=== PATIENT | female | born 1940 | race Asian ===

== ENCOUNTER 2016-05-14 12:33 | Inpatient (IN) | payer MEDICARE ==
[~2016-05-14] VITALS: Ht 165.1 cm; Wt 59.4 kg
[2016-05-14] MEDS ORDERED: TEMAZEPAM 15 MG CAPSULE PO PRN (17:30)
[2016-05-14] MEDS ORDERED: ONDANSETRON HCL 4 MG TABLET PO PRN (17:30)
[2016-05-14] MEDS ORDERED: ACETAMINOPHEN 325 MG TABLET PO PRN ×2 (17:30)
[2016-05-14 17:41] VITALS: BP 139/84
[2016-05-14 18:16] VITALS: BP 139/84
[2016-05-14 20:10] VITALS: BP 143/80
[2016-05-14] MEDS: ATORVASTATIN CALCIUM 40 MG TABLET PO SCH (20:11)
[2016-05-14] MEDS: CARVEDILOL 3.125 MG TABLET PO SCH (20:11)
[2016-05-14] MEDS: SENNA 218 MG/5 ML SYRUP ORAL.SYG PO SCH (20:11)
[2016-05-14] MEDS: DOCUSATE SODIUM 100 MG CAPSULE PO SCH (20:11)
[2016-05-15] VITALS: BP 144/75
[2016-05-15 05:02] LABS: APPEARANCE,URINE CLOUDY (CLEAR); GLUCOSE, URINE (UA) NEGATIVE (NEGATIVE); KETONES,URINE NEGATIVE (NEGATIVE); LEUKOCYTE ESTERASE ,URINE NEGATIVE (NEGATIVE); OCCULT BLOOD,URINE LARGE (NEGATIVE); PROTEIN,URINE NEGATIVE (NEGATIVE)
[2016-05-15 05:07] LABS: RBC,URINE 26-50 /HPF (0-2); SQUAMOUS EPITHELIAL CELL,UR Few /LPF (None Seen); WBC,URINE None Seen /HPF (0-5)
[2016-05-15] MEDS: DOCUSATE SODIUM 283 MG/5 ML MINI-ENEMA PR PRN (05:41)
[2016-05-15 06:54] LABS: BASOPHILS % (AUTO) 0.8 % (0.0-2.0); EOSINOPHILS % (AUTO) 1.6 % (1.0-6.0); HEMATOCRIT 40.4 % (36-46); HEMOGLOBIN 13.1 g/dL (12.0-16.0); LYMPHOCYTES # (AUTO) 1.5 K/uL (1.0-4.8); LYMPHOCYTES % (AUTO) 25.1 % (22.0-44.0); MEAN CORPUSCULAR HEMOGLOBIN 30.1 pg (26.0-34.0); MEAN CORPUSCULAR HGB CONC 32.4 G/dL (31.0-37.0); MEAN CORPUSCULAR VOLUME 93 fL (80-100); MONOCYTES # (AUTO) 0.6 K/uL (0.1-1.0); MONOCYTES % (AUTO) 9.1 % (2.0-9.0); NEUTROPHILS # (AUTO) 3.9 K/uL (1.8-7.7); NEUTROPHILS % (AUTO) 63.4 % (40.0-70.0); PLATELET COUNT (AUTO) 236 K/uL (150-450); RED BLOOD CELL COUNT(AUTO) 4.35 MIL/uL (4.00-5.20); RED CELL DISTRIBUTION WIDTH 13.7 % (11.5-14.5); WHITE BLOOD COUNT (AUTO) 6.2 K/uL (4.5-11.0)
[2016-05-15 07:12] LABS: ALBUMIN 2.9 g/dL (3.4-5.0); BILIRUBIN,TOTAL 0.3 mg/dL (0.1-1.0); CALCIUM, TOTAL 9.1 mg/dL (8.8-10.5); CREATININE 1.02 mg/dL (0.60-1.30); POTASSIUM 3.7 mmol/L (3.5-5.1); TOTAL PROTEIN, SERUM 7.3 g/dL (6.4-8.2)
[2016-05-15 07:15] VITALS: BP 132/83
[2016-05-15] MEDS: ASPIRIN 81 MG CHEWABLE TABLET PO SCH ×2 (09:00→12:28)
[2016-05-15] MEDS: LISINOPRIL 10 MG TABLET PO SCH ×2 (09:00→12:28)
[2016-05-15] MEDS: CARVEDILOL 3.125 MG TABLET PO SCH ×3 (09:00→20:21)
[2016-05-15] MEDS: DOCUSATE SODIUM 100 MG CAPSULE PO SCH ×3 (09:00→20:21)
[2016-05-15 10:46] LABS: GLUCOSE,POINT OF CARE 137 MG/DL (70-110)
[2016-05-15] MEDS ORDERED: 0.9% SODIUM CHLORIDE 10 ML SYRINGE IVP PRN (12:00)
[2016-05-15 15:25] VITALS: BP 116/68
[2016-05-15] MEDS: SENNA 218 MG/5 ML SYRUP ORAL.SYG PO SCH (20:21)
[2016-05-15] MEDS: ATORVASTATIN CALCIUM 40 MG TABLET PO SCH (20:21)
[2016-05-15 20:25] VITALS: BP 120/63
[2016-05-16 00:03] VITALS: BP 106/64
[2016-05-16] MEDS: DOCUSATE SODIUM 283 MG/5 ML MINI-ENEMA PR PRN (03:38)
[2016-05-16 07:30] VITALS: BP 102/59
[2016-05-16] MEDS: LISINOPRIL 10 MG TABLET PO SCH (09:00)
[2016-05-16] MEDS: ASPIRIN 81 MG CHEWABLE TABLET PO SCH (10:13)
[2016-05-16] MEDS: CARVEDILOL 3.125 MG TABLET PO SCH ×2 (10:13→21:24)
[2016-05-16] MEDS: DOCUSATE SODIUM 100 MG CAPSULE PO SCH (10:13)
[2016-05-16 12:57] VITALS: BP 102/57
[2016-05-16 15:27] VITALS: BP 137/53
[2016-05-16 21:00] VITALS: BP 127/62
[2016-05-16] MEDS ORDERED: SENNA 218 MG/5 ML SYRUP ORAL.SYG PO SCH (21:00)
[2016-05-16] MEDS: SENNA 187 MG TABLET PO SCH (21:24)
[2016-05-16] MEDS: ATORVASTATIN CALCIUM 40 MG TABLET PO SCH (21:24)
[2016-05-16] MEDS: DOCUSATE SODIUM 250 MG CAPSULE PO SCH (21:30)
[2016-05-16 23:35] VITALS: BP 108/60
[2016-05-17] MEDS: DOCUSATE SODIUM 283 MG/5 ML MINI-ENEMA PR PRN (04:15)
[2016-05-17 08:01] VITALS: BP 121/57
[2016-05-17] MEDS: DOCUSATE SODIUM 250 MG CAPSULE PO SCH ×2 (08:14→20:22)
[2016-05-17] MEDS: ASPIRIN 81 MG CHEWABLE TABLET PO SCH (08:14)
[2016-05-17] MEDS: CARVEDILOL 3.125 MG TABLET PO SCH ×2 (08:15→20:22)
[2016-05-17] MEDS: LISINOPRIL 10 MG TABLET PO SCH (09:00)
[2016-05-17 10:48] VITALS: BP 120/61
[2016-05-17 15:48] VITALS: BP 103/60
[2016-05-17] MEDS: SENNA 187 MG TABLET PO SCH (20:22)
[2016-05-17] MEDS: ATORVASTATIN CALCIUM 40 MG TABLET PO SCH (20:22)
[2016-05-17] MEDS: ENOXAPARIN SODIUM 30 MG/0.3 ML PF SYRINGE SQ SCH (20:22)
[2016-05-17 20:23] VITALS: BP 106/52
[2016-05-17] MEDS: 0.9% SODIUM CHLORIDE 10 ML SYRINGE IVP SCH (23:37)
[2016-05-17 23:42] VITALS: BP 109/54
[2016-05-18 07:42] VITALS: BP 119/74
[2016-05-18 07:43] LABS: CALCIUM, TOTAL 8.9 mg/dL (8.8-10.5); CREATININE 1.02 mg/dL (0.60-1.30); MAGNESIUM 2.2 mg/dL (1.80-2.40); POTASSIUM 4.1 mmol/L (3.5-5.1)
[2016-05-18] MEDS: 0.9% SODIUM CHLORIDE 10 ML SYRINGE IVP SCH (08:21)
[2016-05-18] MEDS: ENOXAPARIN SODIUM 30 MG/0.3 ML PF SYRINGE SQ SCH ×2 (08:22→21:15)
[2016-05-18] MEDS: ASPIRIN 81 MG CHEWABLE TABLET PO SCH (08:22)
[2016-05-18] MEDS: LISINOPRIL 10 MG TABLET PO SCH (08:22)
[2016-05-18] MEDS: DOCUSATE SODIUM 250 MG CAPSULE PO SCH ×2 (08:22→21:16)
[2016-05-18] MEDS: CARVEDILOL 3.125 MG TABLET PO SCH ×2 (08:22→21:16)
[2016-05-18 13:20] VITALS: BP 111/63
[2016-05-18 15:00] VITALS: BP 115/73
[2016-05-18 18:48] VITALS: BP 123/69
[2016-05-18 21:06] VITALS: BP 114/52
[2016-05-18] MEDS: SENNA 187 MG TABLET PO SCH (21:16)
[2016-05-18] MEDS: ATORVASTATIN CALCIUM 40 MG TABLET PO SCH (21:16)
[2016-05-19 00:52] VITALS: BP 130/67
[2016-05-19 08:00] VITALS: BP 127/67
[2016-05-19] MEDS: ASPIRIN 81 MG CHEWABLE TABLET PO SCH (08:28)
[2016-05-19] MEDS: ENOXAPARIN SODIUM 30 MG/0.3 ML PF SYRINGE SQ SCH ×2 (08:28→20:35)
[2016-05-19] MEDS: CARVEDILOL 3.125 MG TABLET PO SCH ×2 (08:28→20:34)
[2016-05-19] MEDS: DOCUSATE SODIUM 250 MG CAPSULE PO SCH ×2 (08:28→20:34)
[2016-05-19] MEDS: LISINOPRIL 10 MG TABLET PO SCH (08:29)
[2016-05-19] MEDS ORDERED: LOSA25TA21 PO (09:06)
[2016-05-19] MEDS ORDERED: ASPI81 PO (09:06)
[2016-05-19] MEDS ORDERED: ATOR20TA86 PO (09:06)
[2016-05-19] MEDS ORDERED: CLOP75 PO (09:06)
[2016-05-19] MEDS ORDERED: CARV6 PO (09:06)
[2016-05-19] MEDS ORDERED: SPIR25 PO (09:06)
[2016-05-19 15:39] VITALS: BP 107/53
[2016-05-19 20:30] VITALS: BP 119/58
[2016-05-19] MEDS: ATORVASTATIN CALCIUM 40 MG TABLET PO SCH (20:34)
[2016-05-19] MEDS: SENNA 187 MG TABLET PO SCH (20:34)
[2016-05-19 23:39] VITALS: BP 119/73
[2016-05-20 07:09] VITALS: BP 106/75
[2016-05-20] MEDS: ENOXAPARIN SODIUM 30 MG/0.3 ML PF SYRINGE SQ SCH ×2 (09:12→20:47)
[2016-05-20] MEDS: CARVEDILOL 3.125 MG TABLET PO SCH (09:12)
[2016-05-20] MEDS: DOCUSATE SODIUM 250 MG CAPSULE PO SCH ×2 (09:12→20:45)
[2016-05-20] MEDS: LISINOPRIL 10 MG TABLET PO SCH (09:12)
[2016-05-20] MEDS: ASPIRIN 81 MG CHEWABLE TABLET PO SCH (09:13)
[2016-05-20 13:43] LABS: APPEARANCE,URINE CLEAR (CLEAR); GLUCOSE, URINE (UA) NEGATIVE (NEGATIVE); KETONES,URINE NEGATIVE (NEGATIVE); LEUKOCYTE ESTERASE ,URINE NEGATIVE (NEGATIVE); OCCULT BLOOD,URINE LARGE (NEGATIVE); PROTEIN,URINE NEGATIVE (NEGATIVE)
[2016-05-20 13:50] LABS: RBC,URINE 26-50 /HPF (0-2); SQUAMOUS EPITHELIAL CELL,UR None Seen /LPF (None Seen); WBC,URINE None Seen /HPF (0-5)
[2016-05-20 16:40] VITALS: BP 120/56
[2016-05-20 20:43] VITALS: BP 125/76
[2016-05-20] MEDS: ATORVASTATIN CALCIUM 40 MG TABLET PO SCH (20:45)
[2016-05-20] MEDS: SENNA 187 MG TABLET PO SCH (20:46)
[2016-05-20] MEDS: METOPROLOL TARTRATE 25 MG TABLET PO SCH (20:46)
[2016-05-21] VITALS: BP 113/71
[2016-05-21 07:31] VITALS: BP 129/78
[2016-05-21] MEDS: LISINOPRIL 10 MG TABLET PO SCH (08:38)
[2016-05-21] MEDS: METOPROLOL TARTRATE 25 MG TABLET PO SCH ×2 (08:38→21:20)
[2016-05-21] MEDS: ENOXAPARIN SODIUM 30 MG/0.3 ML PF SYRINGE SQ SCH ×2 (08:38→21:20)
[2016-05-21] MEDS: DOCUSATE SODIUM 250 MG CAPSULE PO SCH ×2 (08:38→21:18)
[2016-05-21] MEDS: ASPIRIN 81 MG CHEWABLE TABLET PO SCH (08:38)
[2016-05-21] MEDS: DICLOFENAC SODIUM 1% 100 GM GEL [4GM] TP SCH ×2 (13:47→21:20)
[2016-05-21 15:29] VITALS: BP 112/72
[2016-05-21] MEDS: ATORVASTATIN CALCIUM 40 MG TABLET PO SCH (21:18)
[2016-05-21] MEDS: SENNA 187 MG TABLET PO SCH (21:20)
[2016-05-21 21:30] VITALS: BP 124/61
[2016-05-22 00:42] VITALS: BP 123/53
[2016-05-22 07:14] VITALS: BP 116/77
[2016-05-22] MEDS: ENOXAPARIN SODIUM 30 MG/0.3 ML PF SYRINGE SQ SCH ×2 (08:46→20:33)
[2016-05-22] MEDS: ASPIRIN 81 MG CHEWABLE TABLET PO SCH (08:47)
[2016-05-22] MEDS: METOPROLOL TARTRATE 25 MG TABLET PO SCH ×2 (08:47→20:33)
[2016-05-22] MEDS: DOCUSATE SODIUM 250 MG CAPSULE PO SCH ×2 (08:52→20:35)
[2016-05-22] MEDS: DICLOFENAC SODIUM 1% 100 GM GEL [4GM] TP SCH ×2 (08:52→20:34)
[2016-05-22] MEDS: LISINOPRIL 10 MG TABLET PO SCH (08:52)
[2016-05-22 15:20] VITALS: BP 137/60
[2016-05-22] MEDS: ATORVASTATIN CALCIUM 40 MG TABLET PO SCH (20:32)
[2016-05-22] MEDS: SENNA 187 MG TABLET PO SCH (20:37)
[2016-05-22 20:39] VITALS: BP 120/51
[2016-05-23] VITALS: BP 128/52
[2016-05-23 07:20] VITALS: BP 114/74
[2016-05-23] MEDS: LISINOPRIL 10 MG TABLET PO SCH (08:43)
[2016-05-23] MEDS: DICLOFENAC SODIUM 1% 100 GM GEL [4GM] TP SCH ×2 (08:43→22:39)
[2016-05-23] MEDS: ASPIRIN 81 MG CHEWABLE TABLET PO SCH (08:43)
[2016-05-23] MEDS: DOCUSATE SODIUM 250 MG CAPSULE PO SCH ×2 (08:44→20:40)
[2016-05-23] MEDS: ENOXAPARIN SODIUM 30 MG/0.3 ML PF SYRINGE SQ SCH ×2 (08:44→20:40)
[2016-05-23] MEDS: METOPROLOL TARTRATE 25 MG TABLET PO SCH ×2 (08:44→20:41)
[2016-05-23 15:53] VITALS: BP 114/54
[2016-05-23] MEDS: SENNA 187 MG TABLET PO SCH (20:40)
[2016-05-23] MEDS: ATORVASTATIN CALCIUM 40 MG TABLET PO SCH (20:40)
[2016-05-23 20:47] VITALS: BP 113/66
[2016-05-24] VITALS: BP 115/65
[2016-05-24 07:27] VITALS: BP 133/78
[2016-05-24] MEDS: DICLOFENAC SODIUM 1% 100 GM GEL [4GM] TP SCH ×2 (09:50→21:03)
[2016-05-24] MEDS: LISINOPRIL 10 MG TABLET PO SCH (09:50)
[2016-05-24] MEDS: ENOXAPARIN SODIUM 30 MG/0.3 ML PF SYRINGE SQ SCH ×2 (09:50→21:02)
[2016-05-24] MEDS: METOPROLOL TARTRATE 25 MG TABLET PO SCH ×3 (09:51→21:02)
[2016-05-24] MEDS: DOCUSATE SODIUM 250 MG CAPSULE PO SCH ×3 (09:51→21:02)
[2016-05-24] MEDS: ASPIRIN 81 MG CHEWABLE TABLET PO SCH (09:51)
[2016-05-24 15:21] LABS: CALCIUM, TOTAL 9.1 mg/dL (8.8-10.5); CREATININE 1.26 mg/dL (0.60-1.30); MAGNESIUM 2.2 mg/dL (1.80-2.40); POTASSIUM 4.4 mmol/L (3.5-5.1)
[2016-05-24 15:30] VITALS: BP 112/60
[2016-05-24] MEDS: ATORVASTATIN CALCIUM 40 MG TABLET PO SCH ×2 (21:00→21:02)
[2016-05-24] MEDS: SENNA 187 MG TABLET PO SCH ×2 (21:00→21:02)
[2016-05-25 00:01] VITALS: BP 118/68
[2016-05-25] MEDS: DOCUSATE SODIUM 283 MG/5 ML MINI-ENEMA PR PRN (05:42)
[2016-05-25 08:04] VITALS: BP 117/77
[2016-05-25] MEDS: METOPROLOL TARTRATE 25 MG TABLET PO SCH ×3 (08:37→21:09)
[2016-05-25] MEDS: LISINOPRIL 10 MG TABLET PO SCH (08:37)
[2016-05-25] MEDS: DOCUSATE SODIUM 250 MG CAPSULE PO SCH ×3 (08:37→21:09)
[2016-05-25] MEDS: ENOXAPARIN SODIUM 30 MG/0.3 ML PF SYRINGE SQ SCH ×2 (08:37→21:11)
[2016-05-25] MEDS: ASPIRIN 81 MG CHEWABLE TABLET PO SCH (08:37)
[2016-05-25] MEDS: DICLOFENAC SODIUM 1% 100 GM GEL [4GM] TP SCH ×2 (08:38→21:10)
[2016-05-25 15:22] VITALS: BP_SYST 129; BP_SYST 96; BP_DIAS 58; BP_DIAS 84
[2016-05-25] MEDS: ATORVASTATIN CALCIUM 40 MG TABLET PO SCH ×2 (21:00→21:10)
[2016-05-25] MEDS: SENNA 187 MG TABLET PO SCH ×2 (21:00→21:10)
[2016-05-25 21:11] VITALS: BP 112/64
[2016-05-26 01:05] VITALS: BP 116/57
[2016-05-26 07:30] VITALS: BP 118/57
[2016-05-26] MEDS: METOPROLOL TARTRATE 25 MG TABLET PO SCH ×3 (09:00→21:00)
[2016-05-26] MEDS: ASPIRIN 81 MG CHEWABLE TABLET PO SCH (09:00)
[2016-05-26] MEDS: LISINOPRIL 10 MG TABLET PO SCH (09:00)
[2016-05-26] MEDS: DOCUSATE SODIUM 250 MG CAPSULE PO SCH ×3 (09:00→21:00)
[2016-05-26] MEDS: ENOXAPARIN SODIUM 30 MG/0.3 ML PF SYRINGE SQ SCH ×2 (10:32→20:37)
[2016-05-26] MEDS: DICLOFENAC SODIUM 1% 100 GM GEL [4GM] TP SCH ×2 (10:34→20:38)
[2016-05-26 12:30] VITALS: BP 101/56
[2016-05-26 16:20] VITALS: BP 122/76
[2016-05-26] MEDS: SENNA 187 MG TABLET PO SCH ×2 (20:37→21:00)
[2016-05-26] MEDS: ATORVASTATIN CALCIUM 40 MG TABLET PO SCH ×2 (20:37→21:00)
[2016-05-26 20:40] VITALS: BP 118/64
[2016-05-27 00:13] VITALS: BP 111/52
[2016-05-27 08:13] VITALS: BP 106/77
[2016-05-27] MEDS ORDERED: METOPROLOL TARTRATE 25 MG TABLET PO SCH (09:00)
[2016-05-27] MEDS ORDERED: LISINOPRIL 5 MG TABLET PO SCH (09:00)
[2016-05-27] MEDS: DOCUSATE SODIUM 250 MG CAPSULE PO SCH ×2 (09:00→10:14)
[2016-05-27] MEDS: ASPIRIN 81 MG CHEWABLE TABLET PO SCH ×2 (09:00→10:14)
[2016-05-27] MEDS: DICLOFENAC SODIUM 1% 100 GM GEL [4GM] TP SCH (10:12)
[2016-05-27] MEDS: ENOXAPARIN SODIUM 30 MG/0.3 ML PF SYRINGE SQ SCH (10:13)
== END 2016-05-27 11:20 | DRG 57 ==
LOC: 2WR 16:53
PROVIDERS: ADMIT Physical Medicine & Rehabilitation; ATTEND Physical Medicine & Rehabilitation
DX: I69.354 Hemiplegia and hemiparesis following cerebral infarction affecting left non-dominant side (principal); I48.92 Unspecified atrial flutter; E46 Unspecified protein-calorie malnutrition; E87.0 Hyperosmolality and hypernatremia; I69.320 Aphasia following cerebral infarction; I10 Essential (primary) hypertension; E78.00 Pure hypercholesterolemia, unspecified; I25.10 Atherosclerotic heart disease of native coronary artery without angina pectoris; I69.322 Dysarthria following cerebral infarction; I08.0 Rheumatic disorders of both mitral and aortic valves; I25.5 Ischemic cardiomyopathy; E11.9 Type 2 diabetes mellitus without complications; E86.0 Dehydration; E78.5 Hyperlipidemia, unspecified; K59.00 Constipation, unspecified; R31.9 Hematuria, unspecified; Z88.0 Allergy status to penicillin; Z95.5 Presence of coronary angioplasty implant and graft; Z68.21 Body mass index [BMI] 21.0-21.9, adult; Z91.14 Patient's other noncompliance with medication regimen; Z86.79 Personal history of other diseases of the circulatory system; Z79.899 Other long term (current) drug therapy; Z79.82 Long term (current) use of aspirin
CPT/HCPCS: 82962; 83036; 83735; 87081; 92507; 92508; 92523; 92526; 93005; 93306; 97112; 97116; 97150; 97163; 97167; 97530; 97535; 99366; J1650